=== PATIENT | male | born 1945 | race Caucasian/White ===

== ENCOUNTER 2016-10-05 10:38 | Inpatient (IN) | payer OTHER, MEDICARE ==
[2016-10-05] MEDS ORDERED: HYDROmorphONE/DILAUDID 1 MG/ML SYR IVP ONE ×2 (10:57→12:48)
[2016-10-05] MEDS ORDERED: ONDANSETRON 4 MG/2 ML VIAL IVP ONE (10:57)
[2016-10-05 11:02] LABS: % IMMATURE GRANULYOCYTES 0.5 % (0.0-1.1); ABSOLUTE IMMATURE GRANULOCYTES 0.06 10^3/uL (0.00-0.10); ADD DIFF? NO; ADD MORPH? NO; ADD SCAN? NO; ATYPICAL LYMPHOCYTE FLAG 0 (0-99); FRAGMENT RBC FLAG 0 (0-99); HEMOGLOBIN 17.7 g/dL (13.7-17.5); LEFT SHIFT FLG 0 (0-99); LIPEMIA HEMOLYSIS FLAG 90 (0-99); MEAN CELL HEMOGLOBIN 32.6 pg (27.9-34.1); MEAN CELL VOLUME 95.8 fL (81.5-99.8); MEAN PLATELET VOLUME 9.9 fL (8.7-11.7); PLATELET CLUMPS FLAG 0 (0-99); PLATELET COUNT 182 10^3/uL (150-400); RED BLOOD CELL COUNT 5.43 10^6/uL (4.40-6.38); RED CELL DISTRIBUTION WIDTH 14.1 % (11.5-15.2)
--- NOTE | 2016-10-05 11:05 | EDPHY ---
H & P Stated Complaint: Back Pain Source: Patient, Family Exam Limitations: No limitations - Medical/Surgical History Hx Asthma: No Hx Chronic Respiratory Disease: No Hx Diabetes: No Hx Cardiac Disease: No Hx Renal Disease: No Hx Cirrhosis: No Hx Alcoholism: No Hx HIV/AIDS: No Hx Splenectomy or Spleen Trauma: No Other PMH: Gout - Social History Smoking Status: Former smoker HPI/ROS: CHIEF COMPLAINT: Low back pain HISTORY OF PRESENT ILLNESS: Patient complains of severe low back pain. This is ongoing over the past 18 months. It is localized to the lower back. It is midline. Radiates to the right anterior thigh but stops at the knee. There is no involvement of the perineum. No incontinence of bowel or bladder. No retention of bowel or bladder. No footdrop. No sensory or motor deficits below the knee. History of L4-L5 stenosis with surgical intervention 18 months ago outside of this location. Had epidural injections 9 months ago, 2 weeks ago in 2 days ago. The 1st 2 were successful. The injection 2 days ago was not helpful at all. He has significant pain in the low back as well as subjective fever. Had an appointment today with Neurosurgery. He contacted them due to his symptoms and reports here. No other associated complaints or modifying factors. REVIEW OF SYSTEMS: Ten systems reviewed and are negative unless otherwise noted in the HPI PAST MEDICAL HISTORY: Gout, lumbar stenosis, lumbar radiculopathy SOCIAL HISTORY: Nonsmoker. 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 No wheezing, rhonchi or crackles Cardiovascular: Regular rate and rhythm. No murmur. Pulses intact distally Gastrointestinal: Abdomen is soft and nontender Back: Tenderness over the lower lumbar spine. There is erythema over the spinous process of the lower lumbar spine. No crepitus, step-off or deformity. No palpable fluctuance. No ecchymosis. Range of motion is intact but painful. Neurological: GCS 15. A&O, nonfocal, normal gait. Strength is symmetric in all 4 limbs. Patellar reflexes are symmetric at 2+. Skin: Warm and dry, no rash. Erythema of the low back. No palpable fluctuance. No petechiae or purpura Extremities: Nontender, no pedal edema Psychiatric: Mood and affect normal DIFFERENTIAL DIAGNOSES: Including but not limited to in no particular order, acute cord compression, cauda equina, lumbar radiculopathy, stenosis, fracture, diskitis, epidural abscess MDM: 10:55 a.m. Low back pain with history of lumbar stenosis, but more concerning he has 2 recent epidural injections. I do not have any evidence of acute cord compression or cauda equina. He does not meet sepsis or SIRS criteria, but I have ordered blood cultures and lactic acid due to the possibility of epidural abscess and diskitis. 11:15 a.m. Notified by RN that there is elevation of the lactic acid. Proceed with IV fluid resuscitation and obtain 2nd blood culture. 1:00 p.m. Case discussed with neurosurgery SUHAIL Lyman. he will provide consultation. He reviewed the films with Dr. Lorenz and they do not appreciate any epidural abscess or surgical emergency. 1:25 p.m. Notified by radiologist Dr. Bridges. Lumbar stenotic changes at L3-4 and L4-5. No evidence of epidural abscess. No evidence of diskitis. 1:30 p.m. I have re-evaluated the patient. He remains significantly in pain. The pain is limiting his ability to sit up or walk. He is not ambulatory without assistance. He still has no evidence of acute cord compression. His imaging reveals lateral nerve root pathology due to stenosis. There is no evidence of infection. He has been evaluated by Neurosurgery. Given his level of pain, I will proceed with admission the hospital. He is in no acute distress. He does not require any emergent surgical intervention. 2:10 p.m. I discussed case with Dr. Montero. She will admit the patient to her service. He is admitted in stable condition. SUPERVISION: Patient was evaluated in conjunction with the supervising physician. Please see their note for details. Patient evaluated by Dr. Roberto (Anand El) Constitutional: Initial Vital Signs Temperature (C) 98.8 F 10/05/16 10:42 Heart Rate 50 L 10/05/16 10:42 Respiratory Rate 16 10/05/16 10:42 Blood Pressure 139/90 H 10/05/16 10:42 O2 Sat (%) 99 10/05/16 10:42 O2 Delivery Mode Room Air Allergies/Adverse Reactions: No Known Allergies Allergy (Unverified 03/23/15 11:39) Home Medications: Medication Instructions Recorded Allopurinol [Allopurinol 300 MG 300 mg PO BID 03/23/15 (RX)] HYDROcodone/APAP 10 [[place] 1 - 2 tab PO Q6 PRN #0 tab 04/01/15 10/325 (*)] Methocarbamol [Robaxin 750 mg (*)] 750 mg PO QID PRN #0 tab 04/01/15 Medical Decision Making ED Course/Re-evaluation: 1138: I assessed this patient as the supervising physician for SUHAIL Carter. I answered the patient's and 's questions. He does not meet sepsis criteria at this time. I offered him pain medications but he declined. He is awaiting MRI. (Adrien Roberto) - Data Points Laboratory Results: Laboratory Results 10/05/16 10:50 10/05/16 10:50 10/05/16 10/05/16 10/05/16 12:45 11:45 10:50 WBC RBC Hgb Hct MCV MCH MCHC RDW Plt Count MPV Neut % (Auto) Lymph % (Auto) [place] % (Auto) Eos % (Auto) Baso % (Auto) Nucleat RBC Rel Count Absolute Neuts (auto) Absolute Lymphs (auto) Absolute Monos (auto) Absolute Eos (auto) Absolute Basos (auto) Absolute Nucleated RBC Immature Gran % Immature Gran # ESR PT INR APTT VBG Lactic Acid 1.0 mmol/L mmol/L (0.7-2.1) Sodium 143 mEq/L mEq/L (134-144) Potassium 4.3 mEq/L mEq/L (3.5-5.2) Chloride 110 mEq/L mEq/L (97-110) Carbon Dioxide 20 mEq/l L mEq/l (22-31) Anion Gap 13 mEq/L mEq/L (8-16) BUN 27 mg/dL H mg/dL (7-23) Creatinine 1.0 mg/dL mg/dL (0.7-1.3) Estimated GFR > 60 Glucose 79 mg/dL mg/dL (70-100) Calcium 9.9 mg/dL mg/dL (8.5-10.4) Total Bilirubin 1.5 mg/dL H mg/dL (0.1-1.4) C-Reactive Protein < 5.0 mg/L mg/L (<10.0) Urine Color YELLOW Urine Appearance CLEAR Urine pH 6.0 (5.0-7.5) Ur Specific [place] 1.020 (1.002-1.030) Urine Protein NEGATIVE (NEGATIVE) Urine Ketones NEGATIVE (NEGATIVE) Urine Blood NEGATIVE (NEGATIVE) Urine Nitrate NEGATIVE (NEGATIVE) Urine Bilirubin NEGATIVE (NEGATIVE) Urine Urobilinogen NEGATIVE EU EU (0.2-1.0) Ur Leukocyte Esterase NEGATIVE (NEGATIVE) Urine Glucose NEGATIVE (NEGATIVE) 10/05/16 10/05/16 10/05/16 10:50 10:50 10:50 WBC 12.41 10^3/uL H 10^3/uL (3.80-9.50) RBC 5.43 10^6/uL 10^6/uL (4.40-6.38) Hgb 17.7 g/dL H g/dL (13.7-17.5) Hct 52.0 % H % (40.0-51.0) MCV 95.8 fL fL (81.5-99.8) MCH 32.6 pg pg (27.9-34.1) MCHC 34.0 g/dL g/dL (32.4-36.7) RDW 14.1 % % (11.5-15.2) Plt Count 182 10^3/uL 10^3/uL (150-400) MPV 9.9 fL fL (8.7-11.7) Neut % (Auto) 76.4 % H % (39.3-74.2) Lymph % (Auto) 12.6 % L % (15.0-45.0) [place] % (Auto) 10.2 % % (4.5-13.0) Eos % (Auto) 0.1 % L % (0.6-7.6) Baso % (Auto) 0.2 % L % (0.3-1.7) Nucleat RBC Rel Count 0.0 % % (0.0-0.2) Absolute Neuts (auto) 9.49 10^3/uL H 10^3/uL (1.70-6.50) Absolute Lymphs (auto) 1.56 10^3/uL 10^3/uL (1.00-3.00) Absolute Monos (auto) 1.26 10^3/uL H 10^3/uL (0.30-0.80) Absolute Eos (auto) 0.01 10^3/uL L 10^3/uL (0.03-0.40) Absolute Basos (auto) 0.03 10^3/uL 10^3/uL (0.02-0.10) Absolute Nucleated RBC 0.00 10^3/uL 10^3/uL (0-0.01) Immature Gran % 0.5 % % (0.0-1.1) Immature Gran # 0.06 10^3/uL 10^3/uL (0.00-0.10) ESR 1 MM/HR MM/HR (0-20) PT 12.7 SEC SEC (12.0-15.0) INR 0.96 (0.83-1.16) APTT 23.0 SEC SEC (23.0-38.0) VBG Lactic Acid 2.7 mmol/L H mmol/L (0.7-2.1) Sodium Potassium Chloride Carbon Dioxide Anion Gap BUN Creatinine Estimated GFR Glucose Calcium Total Bilirubin C-Reactive Protein Urine Color Urine Appearance Urine pH Ur Specific [place] Urine Protein Urine Ketones Urine Blood Urine Nitrate Urine Bilirubin Urine Urobilinogen Ur Leukocyte Esterase Urine Glucose Medications Given: Discontinued Medications Hydromorphone HCl (Dilaudid) 1 mg IVP EDNOW ONE Stop: 10/05/16 10:58 Last Admin: 10/05/16 11:09 Dose: 1 mg Hydromorphone HCl (Dilaudid) 1 mg IVP EDNOW ONE Stop: 10/05/16 12:49 Last Admin: 10/05/16 12:52 Dose: 1 mg Sodium Chloride (Ns) 1,000 mls @ 0 mls/hr IV ONCE ONE PRN Reason: Wide Open Stop: 10/05/16 11:30 Last Admin: 10/05/16 11:32 Dose: 1,000 mls Ondansetron HCl (Zofran) 4 mg IVP EDNOW ONE Stop: 10/05/16 10:58 Last Admin: 10/05/16 11:09 Dose: 4 mg Departure - Departure Disposition: [facility] Clinical Impression: Lumbar foraminal stenosis, Lumbar radiculopathy, acute Condition: Good Referrals: NONE *PRIMARY CARE P,. [Primary Care Provider] - As per Instructions
[2016-10-05 11:13] LABS: INR 0.96 (0.83-1.16); PROTIME(PATIENT) 12.7 SEC (12.0-15.0)
[2016-10-05 11:17] LABS: SEDIMENTATION RATE 1 MM/HR (0-20)
[2016-10-05 11:24] LABS: ANION GAP 13 mEq/L (8-16); BILIRUBIN,TOTAL 1.5 mg/dL (0.1-1.4); C-REACTIVE PROTEIN < 5.0 mg/L (<10.0); CALCIUM 9.9 mg/dL (8.5-10.4); CARBON DIOXIDE 20 mEq/l (22-31); CHLORIDE 110 mEq/L (97-110); GLOMERULAR FILTRATION RATE > 60; GLUCOSE 79 mg/dL (70-100); POTASSIUM 4.3 mEq/L (3.5-5.2); SODIUM 143 mEq/L (134-144)
[2016-10-05] MEDS ORDERED: NS 1,000 ML IV ONE (11:29)
[2016-10-05] MEDS ORDERED: GADOBUTROL 10 ML VIAL IVP ONE (11:42)
[2016-10-05 11:58] LABS: LACGHOST ORDER
[2016-10-05 12:57] LABS: COLOR YELLOW; LEUKOCYTE ESTERASE,URINE NEGATIVE (NEGATIVE); NITRITE,URINE NEGATIVE (NEGATIVE)
[2016-10-05] MEDS ORDERED: ONDANSETRON 4 MG/2 ML VIAL IVP PRN (14:57)
[2016-10-05] MEDS ORDERED: IBUPROFEN 200 MG TAB PO PRN (14:57)
[2016-10-05] MEDS ORDERED: POLYETHYLENE GLYCOL 3350 17 GM PKT PO PRN (14:57)
[2016-10-05] MEDS ORDERED: BISACODYL 10 MG SUPP PR PRN (14:57)
[2016-10-05] MEDS ORDERED: ONDANSETRON DISINTEGRATING 4 MG TAB PO PRN (14:57)
[2016-10-05] MEDS ORDERED: LACTULOSE 20 GM/30 ML UDCUP PO PRN (14:57)
[2016-10-05] MEDS ORDERED: NS 1,000 ML IV SCH (15:15)
--- NOTE | 2016-10-05 15:57 | GHP ---
[f rep st] HISTORY AND PHYSICAL DATE OF ADMISSION: 10/05/2016 CHIEF COMPLAINT: Back pain. HISTORY OF PRESENT ILLNESS: This is a 71-year-old male with a history of chronic back pain secondary to lumbar spinal stenosis who presents to the emergency department with worsening back pain. He has been followed by Dr. Graham Lorenz and underwent back surgery several years ago. He did well for a number of years, but approximately 1 year ago his symptoms worsened. He had a steroid spinal injection in December of 2015, which affected good results, and he was relatively pain-free for a number of months. However, over the past several weeks he has had increasing pain. He underwent a 2nd and then 3rd steroid spinal injection most recently 2 days ago. In the past, he has responded well to steroid injections, though this time he has had really no relief. He is essentially unable to stand due to severe pain shooting down his right anterior leg past his knee. He describes this as a sharp, stabbing pain. His symptoms are relieved by lying on his back. He was recently started on OxyContin yesterday, but has felt really no relief from this. He is admitted to the hospital for pain management and is awaiting surgery with Dr. Graham Lorenz. This is scheduled for next week, though timing is currently to be determined to see if it can be done earlier. PAST MEDICAL HISTORY: 1. Gout. 2. Chronic back pain secondary to degenerative disk disease. 3. Lumbar radiculopathy. PAST SURGICAL HISTORY: Lumbar laminectomy, L3-4 and L4-5, in March [address] Graham Lorenz. 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 He denies tobacco use. He reports daily alcohol in the form of 1-2 beers a day. He denies any history of alcohol withdrawal. He lives with his independently, who is present at the bedside. FAMILY HISTORY: Reviewed and noncontributory. REVIEW OF SYSTEMS: 10-point review of systems was performed, and is negative except as per HPI. OBJECTIVE: VITAL SIGNS: Temperature is 37.1, blood pressure 139/90, repeat blood pressure 117/75, heart rate 44-50, respiratory rate 18, he is 98% on room air. GENERAL: The patient is awake, alert, oriented, in no acute distress. HEENT: Head is atraumatic, normocephalic. Pupils equal, round, react to light. Extraocular muscles intact. Oropharynx mucous membranes are moist. NECK: Supple. There is no JVD. HEART: Bradycardic without murmur. LUNGS: Clear to auscultation bilaterally. ABDOMEN: Soft, nondistended, nontender, with normoactive bowel sounds. EXTREMITIES: Without cyanosis, clubbing, or edema. NEUROLOGIC: He has 5/5 proximal muscle strength in bilateral lower extremities. He does have some weakness with right great toe extensor challenge. Sensation is intact. Deep tendon reflexes are absent at the patellar level on the right side. He is unable to ambulate due to pain. LABORATORY DATA: CBC reveals a white blood cell count of 12.4, with 76% neutrophils. INR is 0.96. Lactic acid is 1. Basic metabolic panel is remarkable for a CO2 of 28, BUN 27, a total bilirubin of 1.5. CRP is less than 5. Urinalysis is negative. Lumbar spine MRI, October 05, 2016, shows multilevel lumbar degenerative disk disease with progressive right neural foraminal stenosis at L4-L5, with impingement on the exiting L4 nerve root. There is no evidence of epidural abscess or fluid collection. 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 ASSESSMENT AND PLAN: This is a 71-year-old male with a history of lumbar spinal stenosis requiring surgical intervention 18 months ago who is admitted to the hospital with recurring neuropathic pain. 1. Acute on chronic low back pain with radiculopathy secondary to lumbar spinal stenosis. The patient was seen by his surgeon, Dr. Graham Lorenz, in the emergency department. They are planning to proceed with surgery next week. He is admitted for pain control. I will start him on Neurontin and try to maximize other nonopioid modalities including a Lidoderm patch, Tylenol and NSAIDs. Will opt for MS Contin rather than OxyContin for long-acting opioid therapy, along with Morphine IR and p.r.n. IV Dilaudid if needed for pain control. PT and OT evaluations are requested. 2. Leukocytosis. This may be an acute stress response in the setting of severe pain. Alternatively, his recent steroid injection may have provoked this. I see no evidence of infection. Will follow. 3. Azotemia. This is mild. He may be a bit dehydrated given his severe pain and difficulty with ambulation. We will gently hydrate him overnight with just 1 L of saline. 4. Metabolic acidosis. This is mild. Suspect this will improve with IV fluids. Will recheck in the morning. 5. Deep venous thrombosis prophylaxis. Patient is high risk given his poor ambulatory status. Will start Lovenox. 6. Code status. Patient is full code. 7. Disposition. Patient admitted to observation status. If his pain is controlled and he is safely able to ambulate, he may be a candidate for discharge tomorrow. Otherwise, he will need to change to inpatient. /[id number]/MODL MTDD
[2016-10-05] MEDS: ACETAMINOPHEN 500 MG TAB PO SCH ×2 (16:48→22:57)
[2016-10-05] MEDS: morphINE SR 15 MG TAB PO SCH ×2 (16:48→20:16)
[2016-10-05] MEDS: LIDOCAINE 5% 1 EA PATCH TD SCH (16:48)
[2016-10-05] MEDS: KETOROLAC 15 MG/1 ML SDV IVP SCH ×2 (17:03→22:58)
[2016-10-05] MEDS: GABAPENTIN 300 MG CAP PO SCH ×2 (17:04→20:16)
[2016-10-05] MEDS: HYDROmorphONE/DILAUDID 1 MG/ML SYR IVP PRN (18:22)
[2016-10-05] MEDS: SENNOSIDES/DOCUSATE SODIUM TAB PO SCH (20:16)
[2016-10-05] MEDS: PATCH REMOVAL 1 EA PATCH TD SCH (20:16)
--- NOTE | 2016-10-06 01:02 | GCON ---
[f rep st] CONSULTATION DATE OF CONSULTATION: 10/05/2016. The patient was seen in the emergency department by Dr. Graham Lorenz and examined at 1313 on 10/05/2016. CHIEF COMPLAINT: Back pain with right lower extremity pain. Right leg pain greater than back pain. HISTORY OF PRESENT ILLNESS: The patient is a 71-year-old male with a history of chronic back pain secondary to lumbar spinal stenosis, who presented to the emergency department with worsening back pain. He has been followed by Dr. Lorenz. He underwent back surgery, simply a laminectomy years ago. He did well for a number years but approximately year ago he had worsening symptoms. I did receive a phone call from his in December of 2015, and I recommended that he go for spinal injections with Dr. Rodriguez. He had approximately 9 months of good pain-free relief from the injections and therapy with Dr. Rodriguez. However, over the past several weeks he has had increasing pain. He underwent followup injections, a 2nd and 3rd steroid spinal injection. Most recent injection was [address] Rodriguez. I did speak with Dr. Rodriguez on the phone and he did not recommend any further injections at this point. When I received a call later today from the ER regarding the patient, there were some concerns about infection and other medical issues, and we appreciate Internal Medicine admitting him. The patient mainly complained on my exam, when I did see him later again in the afternoon today, of mainly right lower extremity pain in an L3 distribution. He underwent an MRI today as well. His recently started him back on OxyContin that was written by Dr. Rodriguez. The patient denies any loss of bowel or bladder control. No problems with his gait or balance other than pain related due to the right lower extremity pain. PAST MEDICAL HISTORY: Significant for the following. 1. Gout. 2. Chronic back pain secondary to degenerative disk disease. 3. Lumbar radiculopathy. PAST SURGICAL HISTORY: Lumbar laminectomy at L3-4 and L4-5 [address] Graham Lorenz. MEDICATIONS: Please see med reconciliation form. ALLERGIES: No known drug allergies. FAMILY HISTORY: Reviewed and noncontributory. 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 He denies any tobacco use. He does drink alcohol in the form of 1 or 2 beers a day. He denies any history of alcohol withdrawal symptoms. His lives independently. She was at the bedside throughout my examination. IMMUNIZATIONS: Are reported up to date. TRAVEL: No recent travel. REVIEW OF SYSTEMS: A 10-point Review of Systems was performed and was negative except as noted above in HPI. PHYSICAL EXAM: GENERAL: This is an awake, alert, oriented male, in no acute distress. VITAL SIGNS: Most recent blood pressure 136/83, MAP of 100, 42 heart rate, 15 respirations, 98% on room air, with a temperature of 36.9. HEENT : Head is normocephalic, atraumatic. Pupils are equal, round, reactive to light. EOMI intact. Full visual rojas by confrontation. Ears are patent. Nose is patent. NECK: Soft and supple. No midline tenderness. Full range of motion in flexion, extension, lateral bending, and rotation. RESPIRATORY and CARDIAC: Deferred. ABDOMEN: Soft, nontender. No peritoneal signs. and RECTAL: Deferred. NEURO: Patient is awake, alert, oriented to name, place, location, date, time, and situation. Memory is intact to immediate, past, and current events. Speech: No aphasia, dysarthria, dysphonia. Cranial nerves 2- 12 grossly intact. Motor: Patient has 5/5 strength in all muscle groups of bilateral upper and lower extremities to include deltoids, biceps, triceps, brachioradialis, wrist flexors and extensors, visiting professor with the exception of right EHL at 5- out of 5. Sensation is grossly intact throughout to light touch in the upper lower extremities. Negative straight leg raise. Negative KEERTHI test. Reflexes of biceps, triceps, brachioradialis, knee jerks, and ankle jerk 2+/4. Toes are downgoing bilaterally. Escalera's negative. Babinski negative. No evidence of clonus. MEDICAL DECISION MAKING/DIAGNOSTIC STUDIES: Laboratory tests obtained 2016, shows a white count of 12.41 with H and H of 17.7 and 52.0, with a platelet count 182. Coags on 10/05/2016, shows a PT of 12.7, INR 0.96, and a PTT of 23.0. Lactic acid on 10/05/2016, was 2.7; rechecked at 1.0. Chemistry on 10/05/2016, shows sodium of 143, potassium 4.3, chloride 110, CO2 20, BUN 27 , and a creatinine of 1.0. Urine was negative. IMAGING: MRI of the lumbar spine obtained on 10/05/2016, shows multilevel degenerative disk disease. There is progressive right neural foraminal stenosis at L4-5 from prior examination, impingement of the right exiting L4 nerve root. There is right neural foraminal stenosis and stenotic secondary annular bulge in the foramen on the right side at L3-4 as well. There are stable hemangiomas noted throughout the lumbar spine. IMPRESSION: 1. Lower back pain. 2. Right lower extremity pain with a predominant right L3 radicular pattern. DISCUSSION: The patient is a 71-year-old male, who was admitted to the Internal Medicine service. We were consulted for right lower extremity pain. He has an MRI that shows severe stenosis. He exhibits a right L3 radicular pattern with some mild L4 pattern as well. He will likely need further surgery for this if he cannot get his pain under control. Recommendation likely for an L3-4 L4-5 fusion and TLIF. Medicine is working with him on pain management. I did speak with Dr. Eh Rodriguez, medical collections, regarding a need for further injections. The patient did actually have one 2 days ago, which was a right L3 nerve block. We will see how he does overnight. If symptoms worsen at any time, please call Neurosurgery for any change in neuro status. We will recheck on him tomorrow and develop a treatment plan accordingly whether surgery needs to happen on this hospital stay or not. The patient understands and agrees as does his . /[id number]/MODL MTDD
[2016-10-06 04:56] LABS: % IMMATURE GRANULYOCYTES 0.5 % (0.0-1.1); ABSOLUTE IMMATURE GRANULOCYTES 0.04 10^3/uL (0.00-0.10); ADD DIFF? NO; ADD MORPH? NO; ADD SCAN? NO; ATYPICAL LYMPHOCYTE FLAG 0 (0-99); FRAGMENT RBC FLAG 0 (0-99); HEMATOCRIT 43.6 % (40.0-51.0); HEMOGLOBIN 14.6 g/dL (13.7-17.5); LEFT SHIFT FLG 0 (0-99); LIPEMIA HEMOLYSIS FLAG 80 (0-99); MEAN CELL HEMOGLOBIN 32.8 pg (27.9-34.1); MEAN CELL HEMOGLOBIN CONCENTR. 33.5 g/dL (32.4-36.7); MEAN PLATELET VOLUME 9.6 fL (8.7-11.7); PLATELET CLUMPS FLAG 0 (0-99); PLATELET COUNT 153 10^3/uL (150-400); RED BLOOD CELL COUNT 4.45 10^6/uL (4.40-6.38); RED CELL DISTRIBUTION WIDTH 14.2 % (11.5-15.2)
[2016-10-06] MEDS: KETOROLAC 15 MG/1 ML SDV IVP SCH ×2 (05:09→11:28)
[2016-10-06 05:20] LABS: ANION GAP 6 mEq/L (8-16); CALCIUM 8.9 mg/dL (8.5-10.4); CARBON DIOXIDE 24 mEq/l (22-31); CHLORIDE 110 mEq/L (97-110); GLOMERULAR FILTRATION RATE > 60; GLUCOSE 84 mg/dL (70-100); POTASSIUM 4.8 mEq/L (3.5-5.2); SODIUM 140 mEq/L (134-144)
[2016-10-06] MEDS: oxyCODONE IR 5 MG TAB PO PRN ×4 (07:53→22:14)
[2016-10-06] MEDS: LIDOCAINE 5% 1 EA PATCH TD SCH (08:08)
[2016-10-06] MEDS: SENNOSIDES/DOCUSATE SODIUM TAB PO SCH ×2 (08:08→20:07)
[2016-10-06] MEDS: ALLOPURINOL 300 MG TAB PO SCH ×2 (08:10→20:07)
[2016-10-06] MEDS: GABAPENTIN 300 MG CAP PO SCH ×2 (08:10→20:07)
[2016-10-06] MEDS: ACETAMINOPHEN 500 MG TAB PO SCH ×3 (08:10→22:14)
[2016-10-06] MEDS: morphINE SR 15 MG TAB PO SCH ×2 (08:11→20:07)
[2016-10-06] MEDS: ENOXAPARIN 40 MG/0.4 ML SYR SC SCH (08:11)
--- NOTE | 2016-10-06 08:35 | NEUSURGPN ---
Assessment/Plan: 71 yr old with back pain, right leg pain. History of L3-4, L4-[address] Lorenz March 2015. 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 Plan: -Surgery planned for L2-3, L3-4 TLIF late Sunday afternoon with Dr Lorenz -Patient has exhausted conservative treatments including injections prior to ER admission yesterday -Optimize pain management for the weekend -Will add MS Contin today -PT/OT -Follow exam -Will defer to medicine for elevated BUN -Call neurosurgery with any questions/concerns Subjective: Patient having severe leg pain, laying in bed Objective: AxO x3 EOMI PERRLA BUE 5/5 BLE 5/5 Sensation intact to lt touch BLE Neuro Check Frequency: per routine Urinary Catheter in Place: No - Physician Discussed Patient with : Kelechi Patient Seen by : Kelechi Neurosurgery Physical Exam - Vitals, I&O, Labs I and O 10/05/16 10/06/16 10/07/16 05:59 05:59 05:59 Intake Total 1200 Balance 1200 Weight 90.718 kg Intake: Oral (ml) 200 IV Infused (ml) 1000 Other: Intake Quantity Yes Sufficient Number of Voids 1 Bedside Commode 1 Vital Signs Temp Pulse Resp BP Pulse Ox 36.8 C 46 L 16 131/74 H 93 10/06/16 08:30 10/06/16 08:30 10/06/16 08:30 10/06/16 08:30 10/06/16 08:30 Laboratory Results 10/06/16 04:49 10/06/16 04:49 ICD10 Worksheet Patient Problems: Problems Problem Status Onset Lumbar foraminal stenosis Acute Lumbar radiculopathy, acute Acute Lumbar radicular pain Acute Lumbar stenosis Acute
--- NOTE | 2016-10-06 11:21 | HOSPPROG ---
Hospitalist Progress Note Assessment/Plan: Patient is a 71-year-old male with history of chronic back pain secondary to lumbar stenosis. He presented the [facility] emergency department with worsening back pain. He was seen and evaluated by the neurosurgical team. This surgery is planned for this Sunday. Today is my 1st encounter with the patient. Chart reviewed. * acute on chronic back pain Patient has a history of L3-4, L4-5 TLIF/ surgery is planned for Sunday continue IV Toradol and Dilaudid * leukocytosis Resolved * gout: allopurinol * metabolic acidosis resolved *Plan: patient will require another midnight stay / he is requiring iv pain medications and hasn't been able to ambulate at this time due to the pain Subjective: Sven is c/o ongoing back pain and wants to lie flat in his bed. Objective: Vital Signs Temp Pulse Resp BP Pulse Ox 36.8 C 46 L 16 131/74 H 93 10/06/16 08:30 10/06/16 08:30 10/06/16 08:30 10/06/16 08:30 10/06/16 08:30 Laboratory Results 10/06/16 04:49 10/06/16 04:49 10/05/16 10/06/16 10/07/16 05:59 05:59 05:59 Intake Total 1200 Balance 1200 PT 12.7 SEC (12.0-15.0) 10/05/16 10:50 INR 0.96 (0.83-1.16) 10/05/16 10:50 - Physical Exam Constitutional: uncomfortable, No not in pain Eyes: PERRL Ears, Nose, Mouth, Throat: hearing normal Cardiovascular: regular rate and rhythym Respiratory: no respiratory distress Gastrointestinal: normoactive bowel sounds Skin: warm Musculoskeletal: other (lying flat in bed during my interview) Neurologic: AAOx3 Psychiatric: interacting appropriately, not anxious ICD10 Worksheet Patient Problems: Problems Problem Status Onset Lumbar foraminal stenosis Acute Lumbar radiculopathy, acute Acute Lumbar radicular pain Acute Lumbar stenosis Acute
[2016-10-06] MEDS: MAGNESIUM HYDROXIDE 30 ML UDCUP PO PRN (18:10)
[2016-10-06] MEDS: HYDROmorphONE/DILAUDID 1 MG/ML SYR IVP PRN ×2 (18:13→22:53)
[2016-10-06] MEDS: PATCH REMOVAL 1 EA PATCH TD SCH (20:12)
[2016-10-07] MEDS: oxyCODONE IR 5 MG TAB PO PRN ×5 (05:02→20:06)
[2016-10-07] MEDS: ALLOPURINOL 300 MG TAB PO SCH ×2 (08:32→20:05)
[2016-10-07] MEDS: ACETAMINOPHEN 500 MG TAB PO SCH ×2 (08:33→16:18)
[2016-10-07] MEDS: GABAPENTIN 300 MG CAP PO SCH ×2 (08:33→20:05)
[2016-10-07] MEDS: ENOXAPARIN 40 MG/0.4 ML SYR SC SCH (08:33)
[2016-10-07] MEDS: SENNOSIDES/DOCUSATE SODIUM TAB PO SCH ×2 (08:33→20:06)
[2016-10-07] MEDS: morphINE SR 15 MG TAB PO SCH ×2 (08:33→20:05)
[2016-10-07] MEDS: HYDROmorphONE/DILAUDID 1 MG/ML SYR IVP PRN ×4 (08:34→20:06)
[2016-10-07] MEDS: LIDOCAINE 5% 1 EA PATCH TD SCH (08:37)
--- NOTE | 2016-10-07 10:36 | HOSPPROG ---
Hospitalist Progress Note Assessment/Plan: Patient is a 71-year-old male with history of chronic back pain secondary to lumbar stenosis. He presented the [facility] emergency department with worsening back pain. He was seen and evaluated by the neurosurgical team. This surgery is planned for this Sunday. Today is my 1st encounter with the patient. Chart reviewed. * acute on chronic back pain Patient has a history of L3-4, L4-5 TLIF/ surgery is planned for Sunday continue IV Toradol and IV Dilaudid *constipation resolved had a bowel movement * leukocytosis Resolved * gout: allopurinol * metabolic acidosis resolved *Plan: patient will require hospitalization due to severe pain and requiring iv pain medications Subjective: Sven is comfortable while lying flat in bed. Objective: Vital Signs Temp Pulse Resp BP Pulse Ox 36.7 C 40 L 16 107/69 94 10/07/16 07:33 10/07/16 07:33 10/07/16 07:33 10/07/16 07:33 10/07/16 07:33 10/06/16 10/07/16 10/08/16 05:59 05:59 05:59 Intake Total 300 Output Total 300 Balance 0 PT 12.7 SEC (12.0-15.0) 10/05/16 10:50 INR 0.96 (0.83-1.16) 10/05/16 10:50 - Physical Exam Constitutional: uncomfortable Eyes: PERRL Ears, Nose, Mouth, Throat: hearing normal Cardiovascular: regular rate and rhythym Respiratory: no respiratory distress Gastrointestinal: normoactive bowel sounds Skin: warm Musculoskeletal: muscular tenderness Neurologic: AAOx3 Psychiatric: interacting appropriately ICD10 Worksheet Patient Problems: Problems Problem Status Onset Lumbar foraminal stenosis Acute Lumbar radiculopathy, acute Acute Lumbar radicular pain Acute Lumbar stenosis Acute
--- NOTE | 2016-10-07 12:43 | SOAPPROG ---
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 Objective: Vital Signs Temp Pulse Resp BP Pulse Ox 36.7 C 40 L 16 107/69 94 10/07/16 07:33 10/07/16 07:33 10/07/16 07:33 10/07/16 07:33 10/07/16 07:33 10/06/16 10/07/16 10/08/16 05:59 05:59 05:59 Intake Total 300 Output Total 300 Balance 0 PT 12.7 SEC (12.0-15.0) 10/05/16 10:50 INR 0.96 (0.83-1.16) 10/05/16 10:50 AAOX4, +FC PERRL, EOMI, no facial droop 5/5 + light touch C/D/I ICD10 Worksheet Patient Problems: Problems Problem Status Onset Lumbar foraminal stenosis Acute Lumbar radiculopathy, acute Acute Lumbar radicular pain Acute Lumbar stenosis Acute
[2016-10-07] MEDS: POLYETHYLENE GLYCOL 3350 17 GM PKT PO SCH ×2 (13:06→21:48)
[2016-10-07] MEDS: METHOCARBAMOL 750 MG TAB PO PRN (20:06)
[2016-10-07] MEDS: PATCH REMOVAL 1 EA PATCH TD SCH (21:48)
[2016-10-08] MEDS: HYDROmorphONE/DILAUDID 1 MG/ML SYR IVP PRN ×3 (00:02→08:24)
[2016-10-08] MEDS: oxyCODONE IR 5 MG TAB PO PRN ×3 (00:02→08:23)
[2016-10-08] MEDS: ACETAMINOPHEN 500 MG TAB PO SCH ×4 (00:02→23:42)
[2016-10-08] MEDS: METHOCARBAMOL 750 MG TAB PO PRN ×2 (04:09→20:11)
[2016-10-08] MEDS: ENOXAPARIN 40 MG/0.4 ML SYR SC SCH (08:22)
[2016-10-08] MEDS: POLYETHYLENE GLYCOL 3350 17 GM PKT PO SCH ×2 (08:23→18:49)
[2016-10-08] MEDS: morphINE SR 15 MG TAB PO SCH ×2 (08:23→20:11)
[2016-10-08] MEDS: ALLOPURINOL 300 MG TAB PO SCH ×2 (08:24→20:11)
[2016-10-08] MEDS: SENNOSIDES/DOCUSATE SODIUM TAB PO SCH ×2 (08:24→20:11)
[2016-10-08] MEDS: GABAPENTIN 300 MG CAP PO SCH ×2 (08:24→20:11)
[2016-10-08] MEDS ORDERED: NALOXONE HCL 0.4 MG/ML INJ IVP PRN (08:42)
--- NOTE | 2016-10-08 08:48 | HOSPPROG ---
Hospitalist Progress Note Assessment/Plan: Patient is a 71-year-old male with history of chronic back pain secondary to lumbar stenosis. He presented the [facility] emergency department with worsening back pain. He was seen and evaluated by the neurosurgical team. This surgery is planned for this Sunday. * acute on chronic back pain Patient has a history of L3-4, L4-5 TLIF/ surgery is planned for Sunday having severe pain last night per RN/will start HEEL CURVER Dilaudid *+ blood cx/ gram + chris Suspect this is a contaminant Will monitor for any growth *constipation resolved had a bowel movement * leukocytosis Resolved * gout: allopurinol * metabolic acidosis resolved *Plan: dc short acting narcotics, cont his long acting home meds, place on HEEL CURVER, plan is for surgery tomorrow afternoon as long as blood cx grows out no infectious etiology (low likelihood) / LMWH on hold for tomorrow's pending surgery. Subjective: Sven said back pain got out of control last night/ feeling much better this morning. Objective: Vital Signs Temp Pulse Resp BP Pulse Ox 36.6 C 37 L 16 122/72 H 97 10/08/16 07:25 10/08/16 07:25 10/08/16 07:25 10/08/16 07:25 10/08/16 07:25 10/07/16 10/08/16 10/09/16 05:59 05:59 05:59 Intake Total 300 550 Output Total 300 1450 475 Balance 0 -900 -475 PT 12.7 SEC (12.0-15.0) 10/05/16 10:50 INR 0.96 (0.83-1.16) 10/05/16 10:50 - Physical Exam Constitutional: no apparent distress, appears nourished Eyes: PERRL Ears, Nose, Mouth, Throat: hearing normal Cardiovascular: regular rate and rhythym Respiratory: no respiratory distress Gastrointestinal: normoactive bowel sounds Skin: warm Musculoskeletal: muscular tenderness Neurologic: AAOx3 Psychiatric: interacting appropriately, not anxious ICD10 Worksheet Patient Problems: Problems Problem Status Onset Lumbar foraminal stenosis Acute Lumbar radiculopathy, acute Acute Lumbar radicular pain Acute Lumbar stenosis Acute
[2016-10-08] MEDS: HYDROmorphONE/DILAUDID 6 MG/30 ML PCA IV PRN ×2 (10:30→22:35)
[2016-10-08] MEDS: LIDOCAINE 5% 1 EA PATCH TD SCH (12:05)
--- NOTE | 2016-10-08 12:29 | SOAPPROG ---
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 Objective: Vital Signs Temp Pulse Resp BP Pulse Ox 36.7 C 50 L 16 131/89 H 98 10/08/16 12:03 10/08/16 12:03 10/08/16 12:03 10/08/16 12:03 10/08/16 12:03 10/07/16 10/08/16 10/09/16 05:59 05:59 05:59 Intake Total 300 550 Output Total 300 1450 475 Balance 0 -900 -475 PT 12.7 SEC (12.0-15.0) 10/05/16 10:50 INR 0.96 (0.83-1.16) 10/05/16 10:50 AAOx4, +FC PERRL, EOMI, no facial droop 5/5 + light touch ICD10 Worksheet Patient Problems: Problems Problem Status Onset Lumbar foraminal stenosis Acute Lumbar radiculopathy, acute Acute Lumbar radicular pain Acute Lumbar stenosis Acute
[2016-10-08] MEDS: PATCH REMOVAL 1 EA PATCH TD SCH (20:11)
[2016-10-08] MEDS: NS W/ 20 KCl/L 1,000 ML IV SCH (23:46)
[2016-10-09] MEDS: ACETAMINOPHEN 500 MG TAB PO SCH ×2 (07:48→23:55)
--- NOTE | 2016-10-09 08:28 | NEUSURGPN ---
Assessment/Plan: Assessment: 71 yo M with low back pain and right radicular leg pain likely related to lumbar DJD/stenosis at L3/4 and L4/5 Plan: -neuro: stable, plan was for PT/OT over the weekend -plan for surgery today -pt marked and consented for surgery -orders in place -Pt understands and agrees -PT/OT-CPM -scd/dedrick for dvt prophylaxis -npo since midnight -on ivf now -please call with neuro changes -pt seen and discussed by Dr Lorenz -call with any questions or concerns Subjective: Awake and alert. Pt with continued back and right leg pain. No hill/neck/chest/ abd or gu complaints. No f/c/n/v/d. Objective: AAO x 3, PERRLA/EOMI no droop CN 2-12 grossly intact +lt touch 5/5 BUE/BLE = except right leg weak due to pain response with HF/IP/Q Neuro Check Frequency: per routine Urinary Catheter in Place: No - Physician Discussed Patient with : Kelechi Patient Seen by : Kelechi Neurosurgery Physical Exam - Vitals, I&O, Labs I and O 10/08/16 10/09/16 10/10/16 05:59 05:59 05:59 Intake Total 550 1025 Output Total 1450 1400 Balance -900 -375 Intake: Oral (ml) 550 275 IV Intake (ml) 300 IV Infused (ml) 450 NS W/ 20 KCl/L 1,000 ml @ 450 75 mls/hr IV CONT DAVID Rx #:[id number] Output: Urine (ml) 1450 1400 Urinal 1450 1400 Other: Intake Quantity Yes Sufficient Number of Voids Urinal 1 Vital Signs Temp Pulse Resp BP Pulse Ox 36.6 C 40 L 14 128/72 H 96 10/09/16 07:35 10/09/16 07:35 10/09/16 07:35 10/09/16 07:35 10/09/16 07:35 ICD10 Worksheet Patient Problems: Problems Problem Status Onset Lumbar foraminal stenosis Acute Lumbar radiculopathy, acute Acute Lumbar radicular pain Acute Lumbar stenosis Acute
--- NOTE | 2016-10-09 08:30 | PDHPUP ---
History & Physical Update H&P update statement: This history and physical update is based on an assessment of the patient which was completed after admission or registration (within 24 hours), but prior to the surgery/procedure. H&P update: H&P reviewed & patient examined, no change in patient's condition since H&P completed
--- NOTE | 2016-10-09 08:46 | HOSPPROG ---
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 NSGY to take to OR today #Bacillus bacteremia: contaminant; in 1 bottle. Afebrile #Constipation: resolved #Leukocytosis: resolved. May be stress response. Denies infectious sxs, afebrile. UA NL, bacillus is contaminant #Metabolic acidosis: resolved with IVFs #Gout: allopurinol #DVT ppx: SCDs #Disp: awaiting surgery today Subjective: pain in right hip down leg with movement this morning Objective: Vital Signs Temp Pulse Resp BP Pulse Ox 36.6 C 40 L 14 128/72 H 96 10/09/16 07:35 10/09/16 07:35 10/09/16 07:35 10/09/16 07:35 10/09/16 07:35 10/08/16 10/09/16 10/10/16 05:59 05:59 05:59 Intake Total 550 1025 Output Total 1450 1400 Balance -900 -375 PT 12.7 SEC (12.0-15.0) 10/05/16 10:50 INR 0.96 (0.83-1.16) 10/05/16 10:50 - Physical Exam Constitutional: uncomfortable Eyes: PERRL Ears, Nose, Mouth, Throat: moist mucous membranes, hearing normal Cardiovascular: regular rate and rhythym, no murmur, rub, or gallop Respiratory: no respiratory distress, no rales or rhonchi Gastrointestinal: normoactive bowel sounds, soft, non-tender abdomen Genitourinary: no bladder fullness Skin: warm Musculoskeletal: other (positive straight leg on RLE) Neurologic: AAOx3, CN II-XII Intact Psychiatric: interacting appropriately ICD10 Worksheet Patient Problems: Problems Problem Status Onset Lumbar foraminal stenosis Acute Lumbar radiculopathy, acute Acute Lumbar radicular pain Acute Lumbar stenosis Acute
[2016-10-09] MEDS: GABAPENTIN 300 MG CAP PO SCH (09:06)
[2016-10-09] MEDS: morphINE SR 15 MG TAB PO SCH (09:06)
[2016-10-09] MEDS: ALLOPURINOL 300 MG TAB PO SCH (09:55)
[2016-10-09] MEDS: POLYETHYLENE GLYCOL 3350 17 GM PKT PO SCH (09:56)
[2016-10-09] MEDS: SENNOSIDES/DOCUSATE SODIUM TAB PO SCH (09:56)
[2016-10-09] MEDS: LIDOCAINE 5% 1 EA PATCH TD SCH (10:14)
[2016-10-09] MEDS: HYDROmorphONE/DILAUDID 6 MG/30 ML PCA IV PRN (11:56)
[2016-10-09] MEDS: NS W/ 20 KCl/L 1,000 ML IV SCH (13:07)
[2016-10-09] MEDS ORDERED: BACITRACIN 50,000 UNITS/10 ML SYR IRR ONE (15:00)
[2016-10-09] MEDS ORDERED: CHLORHEXIDINE GLUC HIBICLENS 118 ML BTL TP ONE ×2 (15:00→17:20)
[2016-10-09] MEDS ORDERED: BUPIVACAINE/EPI 0.25% 30 ML SDV ONE (15:00)
[2016-10-09] MEDS ORDERED: THROMBIN (BOVINE) 20,000 UNIT VIAL TP ONE (15:00)
[2016-10-09] MEDS ORDERED: ceFAZolin 2 GM/DEXTROSE 100 ML IV ONE (16:00)
[2016-10-09] MEDS ORDERED: LR 1,000 ML IV ONE (17:05)
[2016-10-09] MEDS ORDERED: diphenhydrAMINE 25 MG CAP PO PRN (17:14)
[2016-10-09] MEDS ORDERED: NS 1,000 ML IV SCH (17:15)
[2016-10-09] MEDS ORDERED: MIDAZOLAM 2 MG/2 ML VIAL IVP ONE (17:47)
--- NOTE | 2016-10-09 17:49 | PDANEPAE ---
ANE Past Medical History - Cardiovascular History Hx Hypertension: No Hx Arrhythmias: No Hx Chest Pain: No Hx Coronary Artery / Peripheral Vascular Disease: No Hx CHF / Valvular Disease: No Hx Palpitations: No Cardiovascular History Comment: LOW PULSE RATE. SOME "WHITE COAT" SYNDROME W/BP - Pulmonary History Hx COPD: No Hx Asthma/Reactive Airway Disease: No Hx Recent Upper Respiratory Infection: No Hx Oxygen in Use at Home: No Hx Sleep Apnea: No Sleep Apnea Screening Result - Last Documented: Negative - Neurologic History Hx Cerebrovascular Accident: No Hx Seizures: No Hx Dementia: No - Endocrine History Hx Diabetes: No Hypothyroid: No Hyperthyroid: No Obesity: no - Renal History Hx Renal Disorders: No Renal History Comment: KIDNEY STONE X1 - Liver History Hx Hepatic Disorders: No - Neurological & Psychiatric Hx Hx Neurological and Psychiatric Disorders: No - Cancer History Hx Cancer: Yes Cancer History Comment: BASAL CELL REMOVALS. SQUAMOUS CELL REMOVAL - Congenital Disorder History Hx Congenital Disorders: No - GI History GERD: no Hx Gastrointestinal Disorders: No - Other Health History Other Health History: NEG - Chronic Pain History Chronic Pain: Yes (BACK & ERICK SCIATICA AND LEGS) - Surgical History Prior Surgeries: TONSILLECTOMY. APPENDECTOMY. PILONIDAL CYST ANE Review of Systems - Exercise capacity Exercise capacity: limited by disability - Systems Muscolosketal: Reports: back pain, gout, muscle pain, muscle stiffness ANE Patient History - Allergies Allergies/Adverse Reactions: No Known Allergies Allergy (Unverified 03/23/15 11:39) - Home Medications Home Medications: Allopurinol [Allopurinol 300 MG (RX)] 300 mg PO BID 10/05/16 [Last Taken Unknown ] Oxycodone HCl/Acetaminophen [Oxycodone-Acetaminophen 10-325] 1 each PO Q8 PRN [Last Taken Unknown] - NPO status NPO Since - Liquids (Date): 10/09/16 NPO Since - Liquids (Time): 00:00 NPO Since - Solids (Date): 10/09/16 NPO Since - Solids (Time): 00:00 - Anes Hx Anes Hx: no prior problems - Smoking Hx Smoking Status: Former smoker - Family Anes Hx Family Hx Anesthesia Complications: NEG ANE Labs/Vital Signs - Labs Result Diagrams: 10/06/16 04:49 10/06/16 04:49 - Vital Signs Blood Pressure: 153/85 Heart Rate: 43 Respiratory Rate: 14 O2 Sat (%): 97 Height: 195.58 cm Weight: 90.718 kg ANE Physical Exam - Airway Neck exam: FROM Mallampati Score: Class 2 Mouth exam: normal dental/mouth exam - Pulmonary Pulmonary: no respiratory distress, no rales or rhonchi, clear to auscultation - Cardiovascular Cardiovascular: bradycardia - ASA Status ASA Status: II ANE Anesthesia Plan Anesthesia Plan: general endotracheal anesthesia
[2016-10-09] MEDS ORDERED: REMIFENTANIL HCL 1 MG VIAL ONE ×2 (17:59→20:38)
[2016-10-09] MEDS ORDERED: fentaNYL 100 MCG/2 ML INJ ONE ×3 (17:59→23:12)
[2016-10-09] MEDS ORDERED: PROPOFOL 200 MG/20 ML VIAL ONE (18:00)
[2016-10-09] MEDS ORDERED: PROPOFOL/EMULSION 500 MG/50 ML BOTTLE IV ONE ×2 (18:00→20:38)
[2016-10-09] MEDS ORDERED: DEXAMETHASONE 4 MG/ML VIAL ONE ×3 (18:02→18:14)
[2016-10-09] MEDS ORDERED: PHENYLEPHRINE HCL 100 MCG/ML SYR ONE (18:04)
[2016-10-09] MEDS ORDERED: LIDOCAINE 2% 5 ML SDV ONE (18:05)
[2016-10-09] MEDS ORDERED: NALOXONE HCL 0.4 MG/ML INJ IVP PRN (19:05)
[2016-10-09] MEDS ORDERED: PROMETHAZINE HCL 25 MG/ML INJ IVP PRN (19:05)
[2016-10-09] MEDS ORDERED: ACETAMINOPHEN 500 MG TAB PO PRN (19:05)
[2016-10-09] MEDS ORDERED: fentaNYL 100 MCG/2 ML INJ IVP PRN (19:05)
[2016-10-09] MEDS ORDERED: LR 500 ML IV PRN (19:05)
[2016-10-09] MEDS ORDERED: ONDANSETRON 4 MG/2 ML VIAL IVP PRN (19:05)
[2016-10-09] MEDS ORDERED: epHEDrine SULFATE 10 MG/ML SYR ONE (19:10)
[2016-10-09] MEDS ORDERED: ceFAZolin 1 GM VIAL ONE (22:10)
--- NOTE | 2016-10-09 22:45 | SOAPPROG ---
SOAP Progress Note Assessment/Plan: Post Op Visit: S: Awake and alert. Pt with expected lower back pain O: AFVSS/PERRLA/EOMI no droop CN 2-12 grossly intact +lt touch 5/5 BUE/BLE = CDI KARIN in place A/P: 71 yo male that is s/p TLIF L3/4 and L4/5 -orders in place -call with any questions or concerns -take medications as directed -pt seen by Dr Lorenz as well Objective: Vital Signs Temp Pulse Resp BP Pulse Ox 36.9 C 43 L 14 153/85 H 97 10/09/16 17:15 10/09/16 17:49 10/09/16 17:49 10/09/16 17:49 10/09/16 17:49 10/08/16 10/09/16 10/10/16 05:59 05:59 05:59 Intake Total 550 1025 450 Output Total 1450 1400 Balance -900 -375 450 PT 12.7 SEC (12.0-15.0) 10/05/16 10:50 INR 0.96 (0.83-1.16) 10/05/16 10:50 ICD10 Worksheet Patient Problems: Problems Problem Status Onset Lumbar foraminal stenosis Acute Lumbar radiculopathy, acute Acute Lumbar radicular pain Acute Lumbar stenosis Acute
[2016-10-09] MEDS: fentaNYL 100 MCG/2 ML INJ IVP PRN ×2 (23:03→23:09)
[2016-10-09] MEDS ORDERED: DIAZEPAM 10 MG/2 ML SYR ONE (23:12)
[2016-10-09] MEDS: DIAZEPAM 10 MG/2 ML SYR IVP PRN ×2 (23:13→23:22)
[2016-10-10] MEDS: ALLOPURINOL 300 MG TAB PO SCH ×3 (00:05→21:17)
[2016-10-10] MEDS: morphINE SR 15 MG TAB PO SCH ×3 (00:05→21:17)
[2016-10-10] MEDS: FAMOTIDINE 20 MG TAB PO SCH ×3 (00:05→21:17)
[2016-10-10] MEDS: GABAPENTIN 300 MG CAP PO SCH ×3 (00:05→21:17)
[2016-10-10] MEDS: POLYETHYLENE GLYCOL 3350 17 GM PKT PO SCH ×3 (00:06→21:16)
[2016-10-10] MEDS: ACETAMINOPHEN 500 MG TAB PO SCH ×4 (00:06→23:55)
[2016-10-10] MEDS: PATCH REMOVAL 1 EA PATCH TD SCH ×2 (00:06→21:17)
[2016-10-10] MEDS: SENNOSIDES/DOCUSATE SODIUM TAB PO SCH ×3 (00:06→21:17)
[2016-10-10] MEDS: ceFAZolin 2 GM/DEXTROSE 100 ML IV SCH ×2 (01:16→09:24)
[2016-10-10 05:40] LABS: ANION GAP 9 mEq/L (8-16); CALCIUM 8.6 mg/dL (8.5-10.4); CARBON DIOXIDE 23 mEq/l (22-31); CHLORIDE 107 mEq/L (97-110); CREATININE 0.8 mg/dL (0.7-1.3); GLOMERULAR FILTRATION RATE > 60; GLUCOSE 103 mg/dL (70-100); POTASSIUM 4.5 mEq/L (3.5-5.2); SODIUM 139 mEq/L (134-144)
[2016-10-10] MEDS: HYDROmorphONE/DILAUDID 6 MG/30 ML PCA IV PRN (06:51)
--- NOTE | 2016-10-10 07:11 | GOP ---
[f rep st] OPERATIVE REPORT DATE OF OPERATION: 10/09/2016 SURGEON: Haresh Lorenz MD NEUROSURGEON: Haresh Lorenz MD RETAIL DELIVERY DRIVER: Rios Little PA-C PREOPERATIVE DIAGNOSIS: Relentless right L3 radiculopathy, degenerative scoliosis, degenerative dis k disease, lumbar spondylosis, severe right foraminal stenosis L3-4 and L4-5. POSTOPERATIVE DIAGNOSIS: Relentless right L3 radiculopathy, degenerative scoliosis, degenerative di sk disease, lumbar spondylosis, severe right foraminal stenosis L3-4 and L4-5. PROCEDURE PERFORMED: Posterior lateral and intervertebral arthrodesis with complete facetectomy and correction of degenerative scoliosis with decompression and intervertebral and posterolateral arthr odesis same levels L3-4 and L4-5 ([id number], [id number]); posterior segmental instrumentation L3, L4, L5; robert cement of biomechanical intervertebral device L3-4 and L4-5; same incision bone graft harvest; spina l stereotaxy; microscope. FINDINGS: ESTIMATED BLOOD LOSS: 300 cc. INDICATIONS: The patient is a 71-year-old gentleman who underwent a successful laminectomy for spin al stenosis that was quite severe at L3-4, L4-5 last year, who developed relentless right leg pain. He actually had to come to the hospital and be admitted for pain control, and we had been trying fo r several weeks to manage the increasing discomfort in the right leg with interventional treatments. He came to the emergency room last week and had an MRI demonstrating severe right foraminal stenos is at L3-4, L4-5, and we attempted medical management of his pain once again. We attempted all week end to try to control his pain without surgery, but he simply could not get out of bed. He was bedr idden due to pain. The distribution of his pain was a clear-cut right L3 type pattern of pain that went down to the knee and stopped right at the knee itself. It did not go into the anterior pepper, b ut he had right foraminal stenosis both at L4-5 and L3-4 and prior laminectomies at those levels. H e had a degenerative scoliotic curve concave to the right-hand side, which explained the symptoms, a nd I suggested a 2-level instrumented fusion with complete facetectomies on the right-hand side. Th e risk of adjacent segment disease, nerve injury, spinal fluid leak, continued symptoms was discusse d. He knew surgery could fail to give the pain relief that he sought, but it was a reasonable treat ment option. He really had no other choice. He was bedridden in pain, and despite our best efforts to control the pain, it did not resolve over the weekend. DESCRIPTION OF PROCEDURE: The patient was taken to the operating room, placed in the supine positio n. General anesthesia was begun. He was flipped prone on the Mk table. Care was taken to pad all points of contact. His back was sterilely prepped and draped in the usual fashion. He had a p rior 18 mm incision that was well healed on his lumbar spine. We used this incision and extended it rostrally and caudally for a total length of about 8 cm. We dissected down the L2 lamina, and then worked our way out along the L2-3 facet joint to the L3 transverse process, and then worked our way laterally from the L3 transverse process all way down to the L5 transverse process. Localizing x-r ays were taken. The prior laminectomy defects were identified. We denuded the L3-4 and L4-5 facet joints bilaterally and roughened them to create arthrodesis and also allow placement of pedicle scre ws. We tested Stealth reference frame to the L3 spinous process and performed an O-arm spin, and us ing frameless Stealth stereotaxy, placed pedicle screws bilaterally at L3, L4, and L5. The screws a ll stimulated at acceptable levels. An O-arm spin was made. All the screws were in excellent posit ion. We placed rods down over the screws. They were pre bent lordotic rods, and we distracted betw een L3-4 and L4-5, much more so on the right than on the left. This opened up the neural foramen kramer bstantially and reduced the scoliotic curve. We then harvested the rostral L5 spinous process and t he L3 spinous process for autologous grafting purposes. We removed all the soft tissue from the bon e bilaterally at L3-4 and L4-5 and decorticated the left-sided facet joints completely to create art hrodesis there. On the right-hand side, we completely removed all soft tissue from the right-sided bone, and we then completely resected the L3-4 and L4-5 facets on the right, and care was taken, and we spent additional time to harvest this bone as this was our bony autograft. We removed the IAP o f L4, the SAP of L5, the IAP of L3, and the SAP of L4 on the right-hand side, and then introduced th e operating microscope. We began at the L3-4 foramina on the right side, where we worked our way in to the foraminal tissue, and immediately identified the exiting L3 nerve root and decompressed it in to its neural foramen. It was compressed under the SAP of L4, and this was removed, and we got a gr eat decompression. We then decompressed the lateral portion of the thecal sac, swept the thecal sac medially, incised the L3-4 disk, removed the disk and the cartilaginous endplates. We then roughen ed the subchondral bone at L3-4 to create arthrodesis there. We then took a high-speed drill and th inned out the medial portion of the pedicle of L4, and followed the traversing L4 nerve root down in feriorly into its neural foramen. We removed the IAP of L4 and then encountered the SAP of L5, both of which were completely removed. The L4 nerve root was decompressed into its foramen, and this fo ramen to was tighter than normal. We then incised the L4-5 disk, removed the disk and the cartilagi nous endplates, roughened the subchondral bone to create arthrodesis there. Once both intervertebra l spaces had been thoroughly prepped for arthrodesis, we then sized the trials and then chose 8 x 28 mm devices to insert at both spaces. We placed bone autograft and BMP into both spaces and then in serted the 8 x 28 mm devices under fluoroscopic guidance and expanded them under fluoroscopic guidan ce. They were well released in the ventral portion of the disk space, and a nice fit was obtained, and the final x-rays were excellent. We then decorticated all remaining posterolateral bone bilater ally to create arthrodesis, and placed bone autograft and BMP posterolaterally bilaterally. Then pl aced a subfascial drain, and then closed the incision in multiple layers using Vicryl sutures. Ster i-Strips were applied to the skin. The patient was reversed from anesthesia, extubated, and transfe rred to the recovery room in stable condition. COMPLICATIONS: None. /[id number]/MODL
[2016-10-10] MEDS: LIDOCAINE 5% 1 EA PATCH TD SCH (09:24)
[2016-10-10] MEDS: oxyCODONE IR 5 MG TAB PO PRN ×4 (09:25→23:55)
[2016-10-10] MEDS: METHOCARBAMOL 750 MG TAB PO PRN ×2 (09:27→17:24)
--- NOTE | 2016-10-10 10:00 | NEUSURGPN ---
Date of Surgery: 10/09/16 Post Op Day: 1 Assessment/Plan: Assessment: 71 yo M with low back pain and right radicular leg pain likely related to lumbar DJD/stenosis at L3/4 and L4/5 that is POD #1 s/p TLIF L3/4 and L4/5 Plan: -neuro: stable -PT/OT -tolerated surgery well -pt states that the pain in the right leg is much better and the numbness as well -pt walking well in room -post op xrays pending -brace when out of bed -continue with KARIN -pt seen by Dr Lorenz as well -Pt understands and agrees -scd/dedrick for dvt prophylaxis -please call with neuro changes -call with any questions or concerns Subjective: Awake and alert. NAD. Eating/drinking and voiding. No f/c/n/v/d. No hill/neck/ chest/abd or gu complaints. Objective: AFVSS/PERRLA/EOMI no droop CN 2-12 grossly intact +lt touch 5/5 BUE/BLE = CDI KARIN in place Neuro Check Frequency: per routine Urinary Catheter in Place: No Catheter Insertion Date: 10/09/16 - Physician Discussed Patient with Dr.: Kelechi Patient Seen by : Kelechi Neurosurgery Physical Exam - Vitals, I&O, Labs I and O 10/09/16 10/10/16 10/11/16 05:59 05:59 05:59 Intake Total 1025 3902 Output Total 1400 2500 Balance -375 1402 Weight 90.718 kg Intake: Oral (ml) 275 200 IV Intake (ml) 300 2600 IV Infused (ml) 450 1102 NS W/ 20 KCl/L 1,000 ml @ 450 450 75 mls/hr IV CONT DAVID Rx #:[id number] Ns 1,000 ml @ 100 mls/hr 542 IV CONT DAVID Rx#: [id number] ceFAZolin 2 GM/DEXTROSE 110 100 ml @ 200 mls/hr IV Q8H DAVID Rx#:[id number] Output: Urine (ml) 1400 2025 Catheter 775 Urinal 1400 1250 Estimated Blood Loss (ml) 300 KARIN Drain Output (ml) 175 #1 Back 175 Other: Intake Quantity Yes Sufficient Number of Voids Urinal 1 Vital Signs Temp Pulse Resp BP Pulse Ox 36.5 C 69 16 108/71 97 10/10/16 07:00 10/10/16 08:00 10/10/16 08:00 10/10/16 08:00 10/10/16 08:00 Laboratory Results 10/10/16 04:34 ICD10 Worksheet Patient Problems: Problems Problem Status Onset Lumbar foraminal stenosis Acute Lumbar radiculopathy, acute Acute Lumbar radicular pain Acute Lumbar stenosis Acute
--- NOTE | 2016-10-10 20:08 | HOSPPROG ---
Hospitalist Progress Note Assessment/Plan: #Acute on chronic lumbar back pain: much improved after surgery #Lumbar stenosis: TLIF L3/L4, POD #1. Back brace. Transition to oral pain control #Bacillus bacteremia: contaminant; in 1 bottle. Afebrile #Constipation: resolved #Leukocytosis: resolved. May be stress response. Denies infectious sxs, afebrile. UA NL, bacillus is contaminant #Metabolic acidosis: resolved with IVFs #Gout: allopurinol #DVT ppx: SCDs #Disp: awaiting surgery today Subjective: pain at incision site. Minimal in hip and leg today Objective: Vital Signs Temp Pulse Resp BP Pulse Ox 37.0 C 51 L 16 106/66 95 10/10/16 19:56 10/10/16 19:56 10/10/16 19:56 10/10/16 19:56 10/10/16 19:56 Laboratory Results 10/10/16 04:34 10/09/16 10/10/16 10/11/16 05:59 05:59 05:59 Intake Total 1025 3902 Output Total 1400 2500 Balance -375 1402 PT 12.7 SEC (12.0-15.0) 10/05/16 10:50 INR 0.96 (0.83-1.16) 10/05/16 10:50 - Physical Exam Constitutional: no apparent distress, other (sitting up in bed in NAD) Eyes: PERRL Ears, Nose, Mouth, Throat: moist mucous membranes Cardiovascular: regular rate and rhythym, no murmur, rub, or gallop Respiratory: no respiratory distress Gastrointestinal: normoactive bowel sounds, soft, non-tender abdomen Genitourinary: no bladder fullness Musculoskeletal: other (back brace in place) Neurologic: AAOx3, CN II-XII Intact Lymph, Heme, Immunologic: no cervical LAD ICD10 Worksheet Patient Problems: Problems Problem Status Onset Lumbar foraminal stenosis Acute Lumbar radiculopathy, acute Acute Lumbar radicular pain Acute Lumbar stenosis Acute
[2016-10-11] MEDS ORDERED: DIAZEPAM 5 MG TAB PO ONE (00:28)
[2016-10-11] MEDS: oxyCODONE IR 5 MG TAB PO PRN ×3 (04:05→12:14)
[2016-10-11 05:04] LABS: HEMATOCRIT 41.4 % (40.0-51.0); HEMOGLOBIN 14.2 g/dL (13.7-17.5); MEAN CELL HEMOGLOBIN 32.8 pg (27.9-34.1); MEAN CELL HEMOGLOBIN CONCENTR. 34.3 g/dL (32.4-36.7); MEAN CELL VOLUME 95.6 fL (81.5-99.8); RED BLOOD CELL COUNT 4.33 10^6/uL (4.40-6.38); RED CELL DISTRIBUTION WIDTH 13.8 % (11.5-15.2)
[2016-10-11 05:14] LABS: ANION GAP 8 mEq/L (8-16); CALCIUM 8.8 mg/dL (8.5-10.4); CARBON DIOXIDE 23 mEq/l (22-31); CHLORIDE 106 mEq/L (97-110); CREATININE 0.9 mg/dL (0.7-1.3); GLOMERULAR FILTRATION RATE > 60; GLUCOSE 75 mg/dL (70-100); POTASSIUM 4.4 mEq/L (3.5-5.2); SODIUM 137 mEq/L (134-144)
[2016-10-11] MEDS: ACETAMINOPHEN 500 MG TAB PO SCH (06:03)
[2016-10-11] MEDS: METHOCARBAMOL 750 MG TAB PO PRN (06:03)
[2016-10-11] MEDS: MAGNESIUM HYDROXIDE 30 ML UDCUP PO PRN (07:32)
[2016-10-11] MEDS: GABAPENTIN 300 MG CAP PO SCH (08:25)
[2016-10-11] MEDS: ALLOPURINOL 300 MG TAB PO SCH (08:25)
[2016-10-11] MEDS: SENNOSIDES/DOCUSATE SODIUM TAB PO SCH (08:25)
[2016-10-11] MEDS: FAMOTIDINE 20 MG TAB PO SCH (08:25)
[2016-10-11] MEDS: morphINE SR 15 MG TAB PO SCH (08:25)
--- NOTE | 2016-10-11 08:39 | NEUSURGPN ---
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 NAD. Eating/drinking and voiding. No f/c/n/v/d. No hill/neck/ chest/abd or gu complaints. Objective: AFVSS/PERRLA/EOMI no droop CN 2-12 grossly intact +lt touch 5/5 BUE/BLE = CDI KARIN to be removed Neuro Check Frequency: per routine Urinary Catheter in Place: No Catheter Insertion Date: 10/09/16 - Physician Discussed Patient with : Kelechi Patient Seen by : Kelechi Neurosurgery Physical Exam - Vitals, I&O, Labs I and O 10/10/16 10/11/16 10/12/16 05:59 05:59 05:59 Intake Total 3902 Output Total 2500 650 Balance 1402 -650 Weight 90.718 kg Intake: Oral (ml) 200 IV Intake (ml) 2600 IV Infused (ml) 1102 NS W/ 20 KCl/L 1,000 ml @ 450 75 mls/hr IV CONT DAVID Rx #:[id number] Ns 1,000 ml @ 100 mls/hr 542 IV CONT DAVID Rx#: [id number] ceFAZolin 2 GM/DEXTROSE 110 100 ml @ 200 mls/hr IV Q8H DAVID Rx#:[id number] Output: Urine (ml) 2025 400 Catheter 775 400 Urinal 1250 Estimated Blood Loss (ml) 300 KARIN Drain Output (ml) 175 250 #1 Back 175 250 Other: Intake Quantity Yes Sufficient Number of Voids Catheter 1 Urinal 3 Vital Signs Temp Pulse Resp BP Pulse Ox 36.8 C 50 L 16 114/83 H 97 08/09/17 07:33 10/11/16 07:33 10/11/16 07:33 10/11/16 07:33 10/11/16 07:33 Laboratory Results 10/11/16 04:25 10/11/16 04:25 ICD10 Worksheet Patient Problems: Problems Problem Status Onset Lumbar foraminal stenosis Acute Lumbar radiculopathy, acute Acute Lumbar radicular pain Acute Lumbar stenosis Acute
[2016-10-11] MEDS: POLYETHYLENE GLYCOL 3350 17 GM PKT PO SCH (09:53)
[2016-10-11] MEDS: LIDOCAINE 5% 1 EA PATCH TD SCH (09:53)
--- NOTE | 2016-10-11 10:28 | PDIAF ---
- Diagnosis Diagnosis: s/p lumbar fusion Code Status: Full Code - Medication Management Discharge Medications: Medications to Continue on Transfer Allopurinol [Allopurinol 300 MG (RX)] 300 mg PO BID 10/05/16 [Last Taken Unknown ] Acetaminophen [Tylenol ES 500 mg (*)] 1,000 mg PO Q8H #0 tab 10/11/16 [Last Taken Unknown] Gabapentin [Neurontin 300 MG (*)] 300 mg PO BID #60 cap 10/11/16 [Last Taken Unknown] Methocarbamol [Robaxin 750 mg (*)] 750 mg PO TID PRN #60 tab 10/11/16 [Last Taken Unknown] Sennosides/Docusate Sodium [Senokot-S] 1 - 2 tab PO BID #0 tab 10/11/16 [Last Taken Unknown] morphINE IR [morphINE IR 15 mg (*)] 15 mg PO Q6H PRN #0 tab 10/11/16 [Last Taken Unknown] morphINE SR [Ms Contin/Oramorph 15 mg (*)] 15 mg PO BID #14 tab 10/11/16 [Last Taken Unknown] oxyCODONE IR [Oxycodone Ir (*)] 5 - 10 mg PO Q4HRS PRN #90 tab 10/11/16 [Last Taken Unknown] Halfway Antibiotics: none Discharge Medications: Refer to the Discharge Home Medication list for PRN reason. - Orders Services needed: Home Care, Physical Therapy, Occupational Therapy Home Care Face to Face: I certify that this patient was under my care and that I had the required [id number] encounter meeting the encounter requirements on the discharge day. My findings support the fact that the patient is homebound as defined in CMS Chapter 7 Medicare Benefits Manual 30.1.1, The condition of the patient is such that there exists a normal inability to leave home and consequently, leaving home would require a considerable and taxing effort. Oxygen: to keep O2 sat greater than 90% Diet Recommendation: no restrictions on diet Diet Texture: Regular Texture Diet Tube feeding: none Chin: No Wound Care Instructions: leave dressing on until 3 days after surgery then ok to shower. Leave steristrips in place until your first post op visit - Follow Up Care Current Providers and Referrals: Nura Lorenz MD [Medical Doctor] - (follow up in 2-3 weeks) NONE *PRIMARY CARE P,. [Unknown] - As per Instructions
[2016-10-11 12:34] VITALS: BP 114/77; PULSE 72; RESP 18; TEMP 97.9; O2SAT 95
--- NOTE | 2016-10-11 14:26 | HOSPPROG ---
Hospitalist Progress Note Assessment/Plan: #Acute on chronic lumbar back pain: much improved after surgery. DC today #Lumbar stenosis: TLIF L3/L4, POD #2. Back brace. Transition to oral pain control #Bacillus bacteremia: contaminant; in 1 bottle. Afebrile #Constipation: resolved #Leukocytosis: resolved. May be stress response. Denies infectious sxs, afebrile. UA NL, bacillus is contaminant #Metabolic acidosis: resolved with IVFs #Gout: allopurinol #DVT ppx: SCDs #Disp: DC today with home PT 35 min counseling pt on pain control and opioid toxicity, constipation Subjective: min pain this morning Objective: Vital Signs Temp Pulse Resp BP Pulse Ox 36.6 C 72 18 114/77 95 10/11/16 12:00 10/11/16 12:00 10/11/16 12:00 10/11/16 12:00 10/11/16 12:00 Laboratory Results 10/11/16 04:25 10/11/16 04:25 10/10/16 10/11/16 10/12/16 05:59 05:59 05:59 Intake Total 3902 Output Total 2500 650 45 Balance 1402 -650 -45 PT 12.7 SEC (12.0-15.0) 10/05/16 10:50 INR 0.96 (0.83-1.16) 10/05/16 10:50 - Physical Exam Constitutional: no apparent distress Eyes: PERRL Ears, Nose, Mouth, Throat: moist mucous membranes Cardiovascular: regular rate and rhythym Respiratory: no respiratory distress Gastrointestinal: normoactive bowel sounds, soft, non-tender abdomen Genitourinary: no bladder fullness, no bladder tenderness Skin: warm, normal color Musculoskeletal: other (sitting up in chair with brace in place) Neurologic: AAOx3, CN II-XII Intact Psychiatric: interacting appropriately, No not encephalopathic ICD10 Worksheet Patient Problems: Problems Problem Status Onset Lumbar foraminal stenosis Acute Lumbar radicular pain Acute Lumbar radiculopathy, acute Acute Lumbar stenosis Acute
== END 2016-10-11 13:05 | disposition home health service (06) | DRG 460 ==
LOC: EDUNIT# → F3N 16:20 → OBSVTOIN 10-06 11:45
PROVIDERS: ADMIT Hospitalist; ATTEND Hospitalist
PROC: 0SG10AJ Fusion of 2 or more Lumbar Vertebral Joints with Interbody Fusion Device, Posterior Approach, Anterior Column, Open Approach (ICD-10-PCS; principal; 2016-10-09 17:30)
PROC: 00NY0ZZ Release Lumbar Spinal Cord, Open Approach (ICD-10-PCS; principal; 2016-10-09 17:30)
PROC: 01NB0ZZ Release Lumbar Nerve, Open Approach (ICD-10-PCS; principal; 2016-10-09 17:30)
PROC: 8E0WXBF Computer Assisted Procedure of Trunk Region, With Fluoroscopy (ICD-10-PCS; principal; 2016-10-09 17:30)
PROC: 4A1004G Monitoring of Central Nervous Electrical Activity, Intraoperative, Open Approach (ICD-10-PCS; principal; 2016-10-09 17:30)
PROC: 0SG1071 Fusion of 2 or more Lumbar Vertebral Joints with Autologous Tissue Substitute, Posterior Approach, Posterior Column, Open Approach (ICD-10-PCS; principal; 2016-10-09 17:30)
DX: M51.16 Intervertebral disc disorders with radiculopathy, lumbar region (principal); M41.86 Other forms of scoliosis, lumbar region; M47.26 Other spondylosis with radiculopathy, lumbar region; M10.9 Gout, unspecified; E87.2 Acidosis; K59.00 Constipation, unspecified
CPT/HCPCS: 96374; 97161-GP; 97166-GO; 97530-GO; 97535-GO; A9585; C1713; G0378; G8978-GP-CJ; G8979-GP-CI; G8987-GO-CI; G8987-GO-CK; G8988-GO-CI; G8989-GO-CI; J0690; J1100; J1170; J1650; J1885; J2370; J2405; J2704; J3010